=== PATIENT | male | born 1940 | race Caucasian/White ===

== ENCOUNTER → 2016-06-26 | Outpatient (CLI) | payer OTHER | LOC: M ONCR 14:24 | PROVIDERS: ATTEND Radiology Radiation Oncology | DX: C61 Malignant neoplasm of prostate (principal) ==

== ENCOUNTER → 2016-07-09 | Outpatient (CLI) | payer MEDICARE ==
--- NOTE | 2016-07-09 17:05 | REP ---
CT CHEST WITHOUT CONTRAST: REASON: Dyspnea. COMPARISON: None. The lack of intravenous contrast decreases the sensitivity of the exam. There is no mediastinal or hilar adenopathy. There are no pleural or pericardial effusions. The imaged upper abdomen is within normal limits. The imaged osseous structures are within normal limits for the patient's age. Evaluation of the lung linares show bilateral apical pleural parenchymal scarring with pleural blebs and parenchymal bulla seen in conjunction with small cystic air spaces scattered throughout all lung linares and particularly in the lung bases where additional pleural blebs are noted. There is cylindrical bronchiectasis seen in the lung bases. More mild appearing cylindrical bronchiectasis is seen in the mid and upper lung zones. Scattered asymmetric opacities throughout the lung linares with basilar predominance could obscure a significant nodule. IMPRESSION: Marked chronic changes with fibrosis, parenchymal bulla, pleural blebs, and bronchiectasis as described above. There is no revised Fleischner's society criteria on the recommendation for followup of such abnormalities. Followup should be based on clinical assessment and patient history. Signed by Alfonso Tee DO 07/10/2016 10:20 A
== END ==
LOC: M RAD 13:48
PROVIDERS: ATTEND Internal Medicine Pulmonary Disease
DX: R06.00 Dyspnea, unspecified (principal)

== ENCOUNTER → 2016-10-01 | Outpatient (REF) | payer MEDICARE ==
[2016-10-01 12:37] LABS: MEAN CORPUSCULAR HEMOGLOBIN 32.1 pg (27.0-33.0); MEAN CORPUSCULAR HGB CONC 33.8 g/dl (32.0-36.5); MEAN CORPUSCULAR VOLUME 94.9 fl (80.0-96.0); RED CELL DISTRIBUTION WIDTH 13.2 % (11.5-14.5)
[2016-10-01 12:40] LABS: ALBUMIN 3.4 GM/DL (3.2-5.2); BILIRUBIN,TOTAL 0.5 MG/DL (0.2-1.0); CALCIUM LEVEL 8.3 MG/DL (8.8-10.2); CREATININE FOR GFR 1.3 MG/DL (0.70-1.30); GLOMERULAR FILTRATION RATE 56.8 (>42); POTASSIUM SERUM 4.2 MEQ/L (3.5-5.1); TOTAL PROTEIN 6.8 GM/DL (6.4-8.2)
== END ==
LOC: M SFHCPLAZ 08:57
PROVIDERS: ATTEND Internal Medicine
DX: Z85.46 Personal history of malignant neoplasm of prostate (principal); I10 Essential (primary) hypertension; E11.9 Type 2 diabetes mellitus without complications

== ENCOUNTER → 2016-12-05 | Outpatient (REF) | payer MEDICARE | LOC: M LABDRAW1 13:31 | PROVIDERS: ATTEND Radiology Radiation Oncology | DX: C61 Malignant neoplasm of prostate (principal) | CPT/HCPCS: 36415; 84153; 90662; G0008 ==

== ENCOUNTER → 2017-03-14 | Outpatient (REF) | payer MEDICARE ==
[2017-03-14 13:10] LABS: MALB URINE SIEMENS 20.5 MG/L; MAU/CREAT RATIO 16.9 MCG/MG (0.0-30.0)
[2017-03-14 13:24] LABS: ALBUMIN 3.7 GM/DL (3.2-5.2); ALBUMIN/GLOBULIN RATIO 1.12 (1.00-1.93); ALKALINE PHOSPHATASE 103 U/L (45-117); ALT/SGPT 19 U/L (12-78); ANION GAP 6 MEQ/L (8-16); AST/SGOT 20 U/L (7-37); BILIRUBIN,TOTAL 0.6 MG/DL (0.2-1.0); BLOOD UREA NITROGEN 21 MG/DL (7-18); CARBON DIOXIDE LEVEL 31 MEQ/L (21-32); CHLORIDE LEVEL 106 MEQ/L (98-107); CHOLESTEROL LEVEL 141 MG/DL (<200); CREATININE FOR GFR 1.17 MG/DL (0.70-1.30); GLOMERULAR FILTRATION RATE > 60.0 (>42); GLUCOSE, FASTING 121 MG/DL (83-110); HDL CHOLESTEROL 38 MG/DL (>40); LDL CHOLESTEROL 80.4 MG/DL (<100); NON-HDL-C 103 MG/DL; POTASSIUM SERUM 4.7 MEQ/L (3.5-5.1); SODIUM LEVEL 143 MEQ/L (136-145); TRIGLYCERIDES LEVEL 113 MG/DL (<150)
[2017-03-14 13:41] LABS: ESTIMATED AVERAGE GLUCOSE 137 MG/DL (60-110); HEMOGLOBIN A1c 6.4 %
== END ==
LOC: M SFHCPLAZ 09:30
DX: I10 Essential (primary) hypertension (principal); E11.9 Type 2 diabetes mellitus without complications; E78.00 Pure hypercholesterolemia, unspecified
CPT/HCPCS: 83735

== ENCOUNTER → 2017-03-31 | Outpatient (CLI) | payer MEDICARE | LOC: M RAD 07:46 | DX: I71.4 Abdominal aortic aneurysm, without rupture (principal) | CPT/HCPCS: 76775 ==

== ENCOUNTER → 2017-06-25 | Outpatient (CLI) | payer MEDICARE | LOC: M ONCR 13:57 | DX: C61 Malignant neoplasm of prostate (principal) | CPT/HCPCS: G0463 ==

== ENCOUNTER → 2017-09-11 | Outpatient (REF) | payer MEDICARE ==
[2017-09-11 12:26] LABS: ESTIMATED AVERAGE GLUCOSE 146 MG/DL (60-110); HEMOGLOBIN A1c 6.7 %
[2017-09-11 12:31] LABS: ALBUMIN 3.5 GM/DL (3.2-5.2); ALBUMIN/GLOBULIN RATIO 0.97 (1.00-1.93); ALKALINE PHOSPHATASE 103 U/L (45-117); ALT/SGPT 21 U/L (12-78); ANION GAP 6 MEQ/L (8-16); AST/SGOT 20 U/L (7-37); BILIRUBIN,TOTAL 0.4 MG/DL (0.2-1.0); BLOOD UREA NITROGEN 24 MG/DL (7-18); CALCIUM LEVEL 8.7 MG/DL (8.8-10.2); CARBON DIOXIDE LEVEL 30 MEQ/L (21-32); CHLORIDE LEVEL 106 MEQ/L (98-107); CREATININE FOR GFR 1.27 MG/DL (0.70-1.30); GLOMERULAR FILTRATION RATE 58.2 (>42); GLUCOSE, FASTING 120 MG/DL (70-100); HEMATOCRIT 40.6 % (42.0-52.0); HEMOGLOBIN 13.4 g/dl (13.5-17.5); MAGNESIUM LEVEL 1.8 MG/DL (1.8-2.4); MEAN CORPUSCULAR HEMOGLOBIN 30.5 pg (27.0-33.0); MEAN CORPUSCULAR VOLUME 92.5 fl (80.0-96.0); PLATELET COUNT, AUTOMATED 278 10^3/uL (150-450); POTASSIUM SERUM 4.3 MEQ/L (3.5-5.1); RED BLOOD COUNT 4.39 10^6/uL (4.30-6.10); RED CELL DISTRIBUTION WIDTH 13.4 % (11.5-14.5); SODIUM LEVEL 142 MEQ/L (136-145); TOTAL PROTEIN 7.1 GM/DL (6.4-8.2); WHITE BLOOD COUNT 8.3 10^3/uL (4.0-10.0)
== END ==
LOC: M SFHCPLAZ 07:51
DX: R06.09 Other forms of dyspnea (principal); I10 Essential (primary) hypertension; E11.9 Type 2 diabetes mellitus without complications
CPT/HCPCS: 83735

== ENCOUNTER → 2017-12-16 | Outpatient (CLI) | payer MEDICARE ==
[2017-12-16 11:49] LABS: PROSTATIC SPECIFIC AG MONITOR < 0.01 NG/ML (< 4.0)
== END ==
LOC: M LAB 10:54
DX: C61 Malignant neoplasm of prostate (principal)
CPT/HCPCS: 84153

== ENCOUNTER → 2018-04-07 | Outpatient (REF) | payer MEDICARE ==
[2018-04-07 11:08] LABS: HEMATOCRIT 40.9 % (42.0-52.0); HEMOGLOBIN 13.3 g/dl (13.5-17.5); MEAN CORPUSCULAR HEMOGLOBIN 30.8 pg (27.0-33.0); MEAN CORPUSCULAR HGB CONC 32.5 g/dl (32.0-36.5); MEAN CORPUSCULAR VOLUME 94.7 fl (80.0-96.0); PLATELET COUNT, AUTOMATED 206 10^3/uL (150-450); RED BLOOD COUNT 4.32 10^6/uL (4.30-6.10); WHITE BLOOD COUNT 9.4 10^3/uL (4.0-10.0)
[2018-04-07 11:21] LABS: ALBUMIN 3.4 GM/DL (3.2-5.2); BILIRUBIN,TOTAL 1.1 MG/DL (0.2-1.0); CALCIUM LEVEL 8.6 MG/DL (8.8-10.2); CHOLESTEROL RISK RATIO 3.585 (<5); CREATININE FOR GFR 1.25 MG/DL (0.70-1.30); GLOMERULAR FILTRATION RATE 59.2 (>35); MAGNESIUM LEVEL 2.1 MG/DL (1.8-2.4); POTASSIUM SERUM 4.4 MEQ/L (3.5-5.1); TOTAL PROTEIN 6.6 GM/DL (6.4-8.2)
[2018-04-07 11:35] LABS: MALB URINE SIEMENS 31.5 MG/L; MAU/CREAT RATIO 17.3 MCG/MG (0.0-30.0)
[2018-04-07 11:37] LABS: HEMOGLOBIN A1c 6.8 %
== END ==
LOC: M SFHCPLAZ 08:39
PROVIDERS: ATTEND Internal Medicine
DX: Z85.46 Personal history of malignant neoplasm of prostate (principal); I10 Essential (primary) hypertension; E11.9 Type 2 diabetes mellitus without complications; E78.00 Pure hypercholesterolemia, unspecified

== ENCOUNTER → 2018-04-15 | Outpatient (CLI) | payer MEDICARE ==
--- NOTE | 2018-04-15 14:00 | REP ---
CT Head without contrast HISTORY: Visual change COMPARISON: None Areas of decreased attenuation are present in the periventricular white matter. This represents small-vessel ischemic disease. There is no intraparenchymal hemorrhage, acute infarct, mass or midline shift. The ventricular system and cortical sulci are dilated consistent with minimal volume loss. There is no extra cerebral collection. There is no fracture. The visualized sinuses are clear. IMPRESSION: 1. Small vessel ischemic disease. 2. Minimal volume loss. Electronically Signed by Wang Queen MD 04/15/2018 01:51 P
--- NOTE | 2018-04-15 15:59 | REP ---
Bilateral carotid artery duplex ultrasound: Peak flow velocity analysis: RIGHT LEFT ICA Peak flow velocity cm/sec 143 80 150 ICA Diastolic flow velocity cm/sec 835.2 45.0 ICA/CCA Ratio 2.4 1.6 ECA Peak flow velocity cm/sec 215 175 CCA Peak flow velocity cm/sec 59.7 91.1 There is moderately heavy atheromatous plaque in the common carotid arteries, bulbs, internal carotid arteries and external carotid arteries bilaterally. The peak flow velocities in the right and left internal carotid arteries and right and left external carotid arteries are moderately elevated. This is compatible with 50 - 69% stenosis in these vessels. There is antegrade flow in the vertebral arteries bilaterally. Impression: 50 - 69% stenosis in the internal carotid arteries bilaterally and in the external carotid arteries bilaterally. Electronically Signed by Anival Quintana MD 04/15/2018 03:50 P
== END ==
LOC: M RAD 13:20
PROVIDERS: ATTEND Internal Medicine
DX: I65.23 Occlusion and stenosis of bilateral carotid arteries (principal); I73.9 Peripheral vascular disease, unspecified; H53.9 Unspecified visual disturbance; Z86.69 Personal history of other diseases of the nervous system and sense organs
CPT/HCPCS: 70450; 93880; G0463

== ENCOUNTER → 2018-04-15 | Outpatient (CLI) | payer MEDICARE | LOC: M RAD 13:35 | PROVIDERS: ATTEND Nurse Practitioner Adult Health | DX: I65.23 Occlusion and stenosis of bilateral carotid arteries (principal); I73.9 Peripheral vascular disease, unspecified; H53.9 Unspecified visual disturbance ==

== ENCOUNTER → 2018-06-04 | Outpatient (CLI) | payer MEDICARE ==
--- NOTE | 2018-06-04 09:18 | REP ---
Abdominal aortic sonography: History: Abdominal aortic aneurysm without rupture. Comparison study: March 31, 2017. Findings: Today's sonographic evaluation demonstrates that the abdominal aorta measures 2.6 x 2.6 cm in AP by transverse dimension at the diaphragmatic hiatus. At the level of main renal arteries, aortic dimensions are 2.4 x 2.1 cm. There is an infrarenal abdominal aortic aneurysm again seen. This measures 3.7 cm anteroposterior x 4.4 cm in right to left dimension x 6.4 cm in length. This is slightly increased in size. There is some eccentric mural thrombus visible in the aorta as expected. The aorta aneurysm does not extend into the common iliac arteries which measure 1.9 x 1.7 cm in AP by transverse dimension on the right, and 1.6 x 1.5 cm in dimension on the left. The distal aorta measures 2.1 x 3.1 cm below the level of the aneurysm. Impression: 3.7 x 4.4 cm infrarenal abdominal aortic aneurysm, slightly increased in size. Electronically Signed by Miguel Angel Hester MD 06/04/2018 01:02 P
== END ==
LOC: M RAD 07:15
PROVIDERS: ATTEND Internal Medicine
DX: I71.4 Abdominal aortic aneurysm, without rupture (principal); I74.09 Other arterial embolism and thrombosis of abdominal aorta

== ENCOUNTER → 2018-06-09 | Outpatient (REF) | payer MEDICARE | LOC: M LABDRAW1 11:42 | PROVIDERS: ATTEND Radiology Radiation Oncology | DX: C61 Malignant neoplasm of prostate (principal) ==

== ENCOUNTER → 2018-06-17 | Outpatient (CLI) | payer MEDICARE ==
--- NOTE | 2018-06-18 06:54 | RADONC ---
RADIATION ONCOLOGY FOLLOWUP NOTE: DATE: 06/17/2018 CHART NUMBER: [id number] DIAGNOSIS: Prostate cancer. STAGE: Recurrent ECOG PERFORMANCE STATUS: 0 Mr. 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 REVIEW OF SYSTEMS: The patient denies any nausea, vomiting, diarrhea, dysuria, hematuria or blood per rectum. He does have some incontinence and wears a protective garment (Depends) for his incontinence. His energy level is excellent and he is able to maintain most day-to-day activities without any alteration of his lifestyle. He also denies fevers, chills, night sweats, diplopia, headaches, anxiety or depression, anorexia, weight loss, visual disturbances, chest pain. EXAMINATION FINDINGS: He is a well-developed, well-nourished male in no acute distress. HEENT: Normocephalic. EOMI. PERRLA. Fundi benign. LYMPHATICS: No palpable peripheral lymphadenopathy is appreciated. LUNGS: Clear. HEART: Regular without murmurs. ABDOMEN: Without evidence of hepatomegaly, masses, deep abdominal tenderness. EXTREMITIES: Without cyanosis, clubbing or edema. NEUROLOGIC: Examination physiologic and nonfocal. PELVIC: Deferred at the patient's request (his PSA level was less than 0.01). IMPRESSION: Clinically VERNA with a most recent PSA less than 0.01. PLAN: Return to clinic in approximately 6 months and he was instructed to return to his referring physicians as per their instructions and directions. Thank you for allowing us the opportunity of participation in the joint followup care of this gentleman. Most sincerely, cc: MD Godwin Addison MD
== END ==
LOC: M ONCR 14:11
PROVIDERS: ATTEND Radiology Radiation Oncology
DX: Z08 Encounter for follow-up examination after completed treatment for malignant neoplasm (principal); Z85.46 Personal history of malignant neoplasm of prostate; R39.81 Functional urinary incontinence; Z92.3 Personal history of irradiation

== ENCOUNTER → 2018-10-07 | Outpatient (REF) | payer MEDICARE ==
[2018-10-07 10:37] LABS: ALBUMIN 3.6 GM/DL (3.2-5.2); ALT/SGPT 30 U/L (12-78); BILIRUBIN,TOTAL 0.4 MG/DL (0.2-1.0); BLOOD UREA NITROGEN 25 MG/DL (7-18); CARBON DIOXIDE LEVEL 28 MEQ/L (21-32); CHLORIDE LEVEL 109 MEQ/L (98-107); CREATININE FOR GFR 1.13 MG/DL (0.70-1.30); GLOMERULAR FILTRATION RATE > 60.0 (>35); GLUCOSE, FASTING 125 MG/DL (70-100); MAGNESIUM LEVEL 2.1 MG/DL (1.8-2.4); POTASSIUM SERUM 4.4 MEQ/L (3.5-5.1); SODIUM LEVEL 143 MEQ/L (136-145); TOTAL PROTEIN 6.9 GM/DL (6.4-8.2)
[2018-10-07 10:43] LABS: HEMOGLOBIN A1c 6.6 %
== END ==
LOC: M SFHCPLAZ 07:54
PROVIDERS: ATTEND Internal Medicine
DX: I10 Essential (primary) hypertension (principal); E11.9 Type 2 diabetes mellitus without complications

== ENCOUNTER → 2018-12-02 | Outpatient (CLI) | payer MEDICARE | LOC: M LAB 10:59 | PROVIDERS: ATTEND Radiology Radiation Oncology | DX: C61 Malignant neoplasm of prostate (principal) ==

== ENCOUNTER → 2018-12-16 | Outpatient (CLI) | payer MEDICARE ==
--- NOTE | 2018-12-17 15:01 | RADONC ---
RADIATION ONCOLOGY FOLLOWUP NOTE DATE: 12/16/2018 CHART NUMBER: [id number] DIAGNOSIS: Prostate cancer. STAGE: Recurrent. ECOG PERFORMANCE STATUS: 0 FOLLOWUP NOTE: Mr. Monzon is a very pleasant, 78-year-old white male with the diagnosis of recurrent moderately to poorly differentiated [place] score 7 (3-4) adenocarcinoma of prostate, who is presenting to us today for routine followup visit 3 years and 1 month post completion of external beam radiation therapy. REVIEW OF SYSTEMS: The patient presents today reporting that generally he is doing quite well. He does continue to have some incontinence since his surgery. Other than that the patient's review of systems is noncontributory. Denies nausea, vomiting, fevers, chills, night sweats, diplopia, headaches, anxiety or depression, anorexia, weight loss, visual disturbances, chest pain, urinary or bowel difficulties, bone pain, or neurological problems. PHYSICAL EXAMINATION: The patient is a well-developed, well-nourished male in no acute distress. HEENT exam is normocephalic, atraumatic. Extraocular movements are intact. There is no palpable cervical, supraclavicular, infraclavicular, axillary, or inguinal lymphadenopathy present. Lungs are clear to auscultation and percussion. Heart has a regular rate and rhythm. Abdomen is benign with no hepatosplenomegaly, masses, or tenderness. Rectal examination reveals a normal anal sphincter tone. His prostate bed is smooth with no evidence of nodularity. Skeletal examination reveals no tenderness to pressure or percussion of the bony skeleton. Extremities reveal no clubbing, cyanosis, or edema. Neurologic exam is grossly intact, as is the remainder of the physical examination. The patient is clinically VERNA at this time. I have discharged him from my followup at this point. He will continue his close followup with his other physicians in the meantime. Dr. Dennis Bond is following him. I let the patient know that I will be retiring. He does have my cell phone number and work number, and I have let him know to feel free to contact me anytime if I could be of any assistance since I will be here for several months still. cc: MD Godwin Addison MD [facility] HOSPITALHeather
== END ==
LOC: M ONCR 12:53
PROVIDERS: ATTEND Radiology Radiation Oncology
DX: C61 Malignant neoplasm of prostate (principal)

== ENCOUNTER → 2019-04-19 | Outpatient (REF) | payer MEDICARE ==
[2019-04-19 13:11] LABS: HEMATOCRIT 43.5 % (42.0-52.0); HEMOGLOBIN 13.9 g/dl (13.5-17.5); MEAN CORPUSCULAR HEMOGLOBIN 30.7 pg (27.0-33.0); PLATELET COUNT, AUTOMATED 229 10^3/uL (150-450); RED BLOOD COUNT 4.53 10^6/uL (4.30-6.10); WHITE BLOOD COUNT 6.6 10^3/uL (4.0-10.0)
[2019-04-19 13:30] LABS: ALBUMIN 3.7 GM/DL (3.2-5.2); ALT/SGPT 25 U/L (12-78); BILIRUBIN,TOTAL 0.5 MG/DL (0.2-1.0); BLOOD UREA NITROGEN 26 MG/DL (7-18); CALCIUM LEVEL 8.6 MG/DL (8.8-10.2); CARBON DIOXIDE LEVEL 30 MEQ/L (21-32); CHLORIDE LEVEL 107 MEQ/L (98-107); CHOLESTEROL LEVEL 172 MG/DL (<200); CHOLESTEROL RISK RATIO 5.058 (<5); CREATININE FOR GFR 1.23 MG/DL (0.70-1.30); GLOMERULAR FILTRATION RATE > 60.0 (>35); GLUCOSE, FASTING 127 MG/DL (70-100); HDL CHOLESTEROL 34 MG/DL (>40); LDL CHOLESTEROL 112 MG/DL (<100); MAGNESIUM LEVEL 1.9 MG/DL (1.8-2.4); NON-HDL-C 138 MG/DL; POTASSIUM SERUM 4.1 MEQ/L (3.5-5.1); SODIUM LEVEL 141 MEQ/L (136-145); TRIGLYCERIDES LEVEL 131 MG/DL (<150)
[2019-04-19 13:31] LABS: HEMOGLOBIN A1c 6.1 %
[2019-04-19 13:35] LABS: MALB URINE SIEMENS 59.4 MG/L; MAU/CREAT RATIO 40.9 MCG/MG (0.0-30.0)
== END ==
LOC: M PLALAB 09:32 → M SFHCPLAZ 09:32
PROVIDERS: ATTEND Internal Medicine
DX: I10 Essential (primary) hypertension (principal); Z85.46 Personal history of malignant neoplasm of prostate; E11.9 Type 2 diabetes mellitus without complications; E78.00 Pure hypercholesterolemia, unspecified

== ENCOUNTER → 2019-08-26 | Outpatient (CLI) | payer MEDICARE ==
--- NOTE | 2019-08-26 10:09 | REP ---
ABDOMINAL AORTIC SONOGRAPHY: HISTORY: Abdominal aortic aneurysm without rupture. Comparison aortic sonography June 04, 2018. FINDINGS: The abdominal aorta measures 2.1 x 1.9 cm in AP x transverse dimension respectively at the proximal diaphragmatic hiatus. At the main renal artery origin level, the aortic dimensions are 2.4 x 2.3 cm. The mid aorta measures 2.3 x 2.3 cm in transverse x AP dimension. There is an infrarenal a aortic aneurysm measuring 3.6 x 3.5 cm in AP x transverse dimension respectively, 6.9 cm in length. The iliac arteries are not involved. The right and left iliac artery measure 1.5 and 1.1 cm in AP dimension respectively. IMPRESSION: Infrarenal abdominal aortic aneurysm. There is no evidence of progression since the prior study.
== END ==
LOC: M WHC 08:48
PROVIDERS: ATTEND Internal Medicine
DX: I71.4 Abdominal aortic aneurysm, without rupture (principal)

== ENCOUNTER → 2019-10-14 | Outpatient (REF) | payer MEDICARE ==
[2019-12-01 06:40] LABS: ALBUMIN 3.6 GM/DL (3.2-5.2); ALT/SGPT 26 U/L (12-78); BILIRUBIN,TOTAL 1.1 MG/DL (0.2-1.0); BLOOD UREA NITROGEN 22 MG/DL (7-18); CALCIUM LEVEL 9.1 MG/DL (8.8-10.2); CARBON DIOXIDE LEVEL 31 MEQ/L (21-32); CHLORIDE LEVEL 105 MEQ/L (98-107); CHOLESTEROL LEVEL 158 MG/DL (<200); CHOLESTEROL RISK RATIO 4.647 (<5); CREATININE FOR GFR 1.17 MG/DL (0.70-1.30); GLOMERULAR FILTRATION RATE > 60.0 (>35); GLUCOSE, FASTING 120 MG/DL (70-100); HDL CHOLESTEROL 34 MG/DL (>40); HEMOGLOBIN A1c 6.1 %; LDL CHOLESTEROL 94 MG/DL (<100); MAGNESIUM LEVEL 1.8 MG/DL (1.8-2.4); MALB URINE SIEMENS 52.5 MG/L; NON-HDL-C 124 MG/DL; POTASSIUM SERUM 4.1 MEQ/L (3.5-5.1); SODIUM LEVEL 139 MEQ/L (136-145); TOTAL PROTEIN 7.2 GM/DL (6.4-8.2); TRIGLYCERIDES LEVEL 149 MG/DL (<150)
== END ==
LOC: M SFHCPLAZ 08:58
PROVIDERS: ATTEND Internal Medicine
DX: E11.9 Type 2 diabetes mellitus without complications (principal); I10 Essential (primary) hypertension; E78.00 Pure hypercholesterolemia, unspecified

== ENCOUNTER → 2020-04-24 | Outpatient (REF) | payer MEDICARE ==
[2020-04-24 14:10] LABS: BASO # 0.1 10^3/uL (0.0-0.2); BASO % 0.8 % (0.0-1.0); EOS # 0.4 10^3/uL (0.0-0.5); EOS % 5.1 % (0.0-3.0); LYMPH # 1.4 10^3/uL (1.5-5.0); LYMPH % 17.9 % (24.0-44.0); MEAN CORPUSCULAR HEMOGLOBIN 30.3 pg (27.0-33.0); MEAN CORPUSCULAR HGB CONC 31.8 g/dl (32.0-36.5); MEAN CORPUSCULAR VOLUME 95.2 fl (80.0-96.0); MONO # 0.8 10^3/uL (0.0-0.8); MONO % 10.4 % (2.0-8.0); NEUTROPHILS # 5.2 10^3/uL (1.5-8.5); NEUTROPHILS % 65.4 % (36.0-66.0); PLATELET COUNT, AUTOMATED 299 10^3/uL (150-450); RED BLOOD COUNT 4.62 10^6/uL (4.30-6.10); WHITE BLOOD COUNT 7.9 10^3/uL (4.0-10.0)
[2020-04-24 14:29] LABS: HEMOGLOBIN A1c 6.1 %
[2020-04-24 14:53] LABS: MALB URINE SIEMENS 76.5 MG/L; MAU/CREAT RATIO 36.4 MCG/MG (0.0-30.0)
[2020-04-24 15:29] LABS: BLOOD UREA NITROGEN 21 MG/DL (7-18); CARBON DIOXIDE LEVEL 26 MEQ/L (21-32); CHLORIDE LEVEL 107 MEQ/L (98-107); CREATININE FOR GFR 1.16 MG/DL (0.70-1.30); GLOMERULAR FILTRATION RATE > 60.0 (>35); GLUCOSE, FASTING 127 MG/DL (70-100); POTASSIUM SERUM 4.4 MEQ/L (3.5-5.1); SODIUM LEVEL 141 MEQ/L (136-145)
[2020-04-24 15:30] LABS: ALBUMIN 3.4 GM/DL (3.2-5.2); ALT/SGPT 21 U/L (12-78); BILIRUBIN,TOTAL 0.6 MG/DL (0.2-1.0); CALCIUM LEVEL 8.8 MG/DL (8.8-10.2); CHOLESTEROL LEVEL 144 MG/DL (<200); CHOLESTEROL RISK RATIO 4.114 (<5); HDL CHOLESTEROL 35 MG/DL (>40); LDL CHOLESTEROL 83 MG/DL (<100); NON-HDL-C 109 MG/DL; PROSTATIC SPECIFIC AG MONITOR < 0.01 NG/ML (< 4.00); TOTAL PROTEIN 6.9 GM/DL (6.4-8.2); TRIGLYCERIDES LEVEL 128 MG/DL (<150)
== END ==
LOC: M PLALAB 09:34
PROVIDERS: ATTEND Internal Medicine
DX: E78.00 Pure hypercholesterolemia, unspecified (principal); I10 Essential (primary) hypertension; E11.9 Type 2 diabetes mellitus without complications; Z11.59 Encounter for screening for other viral diseases; Z85.46 Personal history of malignant neoplasm of prostate
CPT/HCPCS: 36415; 80053; 80061; 82043; 83036; 83735; 84153; 85025; G0472

== ENCOUNTER → 2020-10-20 | Outpatient (CLI) | payer MEDICARE ==
[2020-10-20 14:12] LABS: HEMOGLOBIN A1c 6.1 %
[2020-10-20 14:29] LABS: ALBUMIN 3.6 GM/DL (3.2-5.2); BILIRUBIN,TOTAL 0.8 MG/DL (0.2-1.0); CALCIUM LEVEL 8.8 MG/DL (8.8-10.2); CREATININE FOR GFR 1.29 MG/DL (0.70-1.30); GLOMERULAR FILTRATION RATE 56.8 (>35); MAGNESIUM LEVEL 2.2 MG/DL (1.8-2.4); POTASSIUM SERUM 4.4 MEQ/L (3.5-5.1); TOTAL PROTEIN 7.4 GM/DL (6.4-8.2)
== END ==
LOC: M PLALAB 09:58
PROVIDERS: ATTEND Internal Medicine
DX: I10 Essential (primary) hypertension (principal)

== ENCOUNTER → 2020-11-13 | Outpatient (CLI) | payer MEDICARE ==
--- NOTE | 2020-11-13 09:04 | REP ---
INDICATION: AAA. COMPARISON: 08/26/2019. TECHNIQUE: Real-time sonographic evaluation of the abdominal aorta performed. FINDINGS: The previously noted infrarenal abdominal aortic aneurysm which measures 3.6 x 3.5 cm appears to have increased in size. Maximum AP diameter of abdominal aorta: Proximal (at diaphragm):2.6 cm. At renal artery level: Abdominal aorta not visualized. Mid abdominal aorta:2.4 cm. Distal abdominal aorta (prebifurcation): 4.3 cm. Maximum AP diameter common iliac arteries: Right: 13 mm. Left: 13mm. IMPRESSION: Mild increase in size of infrarenal abdominal aortic aneurysm which measures 4.3 x 4.0 cm, extending for a length of approximately 5.8 cm. <Electronically signed by Anival Mcghee > 11/13/20 0900
== END ==
LOC: M RAD 08:13
PROVIDERS: ATTEND Internal Medicine
DX: I71.4 Abdominal aortic aneurysm, without rupture (principal)

== ENCOUNTER 2020-11-30 02:18 | Emergency (ER) | payer MEDICARE ==
[2020-11-30] MEDS ORDERED: ETOMIDATE INJ 20MG/10ML VIAL ONE (02:19)
[2020-11-30] MEDS ORDERED: SUCCINYLCHOLINE 100 MG/5 ML SYRINGE (J0330) ONE (02:19)
[2020-11-30] MEDS ORDERED: MIDAZOLAM INJ 2MG/2ML VIAL (J2250 PER 1MG) IV STA (02:37)
[2020-11-30] MEDS ORDERED: ASPIRIN 300 MG SUPP PR ONE (02:55)
[2020-11-30 02:57] LABS: VENOUS BASE EXCESS -7.8 (-2.0-2.0); VENOUS HCO3 20.1 MEQ/L (23.0-27.0); VENOUS O2 SATURATION 88.3 % (60.0-80.0); VENOUS PARTIAL PRESSURE O2 65.3 mmHg (30.0-50.0); VENOUS PH 7.223 UNITS (7.330-7.430); VENOUS STANDARD HCO3 18.1 MEQ/L; VENOUS TOTAL CO2 21.7 MEQ/L (24.0-28.0)
[2020-11-30 02:58] LABS: BASO # 0.1 10^3/uL (0.0-0.2); BASO % 0.4 % (0.0-1.0); EOS # 0.3 10^3/uL (0.0-0.5); EOS % 2.2 % (0.0-3.0); HEMATOCRIT 44.9 % (42.0-52.0); HEMOGLOBIN 14.8 g/dl (13.5-17.5); LYMPH # 2.5 10^3/uL (1.5-5.0); LYMPH % 17.2 % (24.0-44.0); MEAN CORPUSCULAR HEMOGLOBIN 30.5 pg (27.0-33.0); MEAN CORPUSCULAR VOLUME 92.6 fl (80.0-96.0); MONO # 1.4 10^3/uL (0.0-0.8); NEUTROPHILS # 9.8 10^3/uL (1.5-8.5); NEUTROPHILS % 68.7 % (36.0-66.0); PLATELET COUNT, AUTOMATED 238 10^3/uL (150-450); RED BLOOD COUNT 4.85 10^6/uL (4.30-6.10); WHITE BLOOD COUNT 14.3 10^3/uL (4.0-10.0)
[2020-11-30 03:09] LABS: INR 1.14; PARTIAL THROMBOPLASTIN TIME 30.3 SECONDS (25.9-37.0)
[2020-11-30] MEDS ORDERED: LOSA50TA88 PO (03:10)
[2020-11-30] MEDS ORDERED: ATEN50TA2 PO (03:10)
[2020-11-30] MEDS ORDERED: OMEP-218 PO (03:10)
[2020-11-30] MEDS ORDERED: ATOR1TAB21 PO (03:10)
[2020-11-30] MEDS ORDERED: MIDAZOLAM INJ 2MG/2ML VIAL (J2250 PER 1MG) IV ONE ×2 (03:20→06:00)
[2020-11-30] MEDS ORDERED: ISOVUE-370 76% 100ML VIAL As Ordered ONE (03:21)
[2020-11-30 03:37] LABS: RSV AMPLIFICATION NEGATIVE (NEGATIVE)
[2020-11-30] MEDS ORDERED: HEPARIN SOD (PORCINE) 5000UNITS/ML 1ML VIAL/SYRINGE IV ONE (04:15)
[2020-11-30] MEDS ORDERED: HEPARIN DRIP 25,000 UNITS in IV 1 EA IV SCH (04:15)
[2020-11-30] MEDS ORDERED: TENECTEPLASE 50 MG KIT (TNKase) (J3101 PER 1MG) IV ONE (04:15)
[2020-11-30 04:18] LABS: BILIRUBIN,DIRECT 0.2 MG/DL (0.0-0.2); BILIRUBIN,TOTAL 0.7 MG/DL (0.2-1.0); CALCIUM LEVEL 8.5 MG/DL (8.8-10.2); CREATININE FOR GFR 1.54 MG/DL (0.70-1.30); GLOMERULAR FILTRATION RATE 46.3 (>35); MB/CK RELATIVE INDEX 10.44 (< OR =4); POTASSIUM SERUM 3.8 MEQ/L (3.5-5.1); THYROID STIMULATING HORMONE 13.2 uIU/ML (0.358-3.740); TOTAL PROTEIN 6.7 GM/DL (6.4-8.2)
[2020-11-30 04:33] LABS: TROPONIN I 87.9 NG/ML (< 0.10)
--- NOTE | 2020-11-30 04:37 | REPVR ---
PROCEDURE INFORMATION: Exam: XR Chest Exam date and time: 11/30/20 (2:38am) Age: 80 years old Clinical indication: Placement and re-postioning of E-T tube TECHNIQUE: Imaging protocol: Portable CXR Views: 1 view COMPARISON: CT CHEST of 07/09/16 FINDINGS: The heart may be top normal in size. Diffusely prominent interstitial markings. No consolidation. No significant pleural effusions. No pneumothorax. E-T tube in place, terminating 2.6 cm above the debbi (on the 2nd film obtained). An enteric tube passes into the stomach (its distal portion not included on the film). IMPRESSION: Bilateral interstitial disease -- perhaps chronic disease. Cannot exclude acute pneumonitis. No consolidation. No significant pleural effusions. E-T tube in place, terminating 2.6 cm above the debbi (on the 2nd film obtained). Electronically signed by: Nikole Chen On 11/30/2020 04:37:17 AM
[2020-11-30] MEDS ORDERED: fentaNYL 100 MCG/2 ML INJECTION (J3010) IV ONE (04:40)
[2020-11-30] MEDS: MIDAZOLAM INJ 2MG/2ML VIAL (J2250 PER 1MG) IV PRN ×3 (04:41→06:21)
--- NOTE | 2020-11-30 05:00 | REPVR ---
PROCEDURE INFORMATION: Exam: CT Abdomen and Pelvis with Contrast Exam date and time: 11/30/20 (3:39am) Age: 80 years old Clinical indication: Cardiac arrest TECHNIQUE: Imaging protocol: Computed tomography of the abdomen and pelvis with contrast Radiation optimization: All CT scans at this facility use at least one of these dose optimization techniques: automated exposure control; mA and/or kV adjustment per patient size (includes targeted exams where dose is matched to clinical indication); or iterative reconstruction. Contrast material: Iso Contrast volume: 75 ml Contrast route: IV COMPARISON: CT ABDOMEN PELVIS OF 02/01/14 FINDINGS: Lower lung linares: Cardiomegaly. Streaky and patchy parenchymal changes at the lung bases. Consolidation and/or atelectasis posteriorly at the right lung base. Minimal pleural effusions. Liver: Normal. No solid mass. Gallbladder and bile ducts: Mildly distended gallbladder. No calcified stones. No ductal dilatation. Pancreas: Normal. No ductal dilatation. Spleen: Normal. No splenomegaly. Adrenal glands: Normal. No mass. Kidneys and ureters: No hydronephrosis. Poorly defined hypodense area (perhaps an irregular solid mass (2.5 cm size) (CT density = 53 HU)), posterolaterally at the midpole of the left kidney (axial images #48 - #53). Stomach and bowel: Enteric tube in place, with its tip in the proximal half of the stomach. No bowel obstruction. No mucosal thickening. Appendix: No evidence of appendicitis. Intraperitoneal space: Unremarkable. No free air. No significant fluid collection. Vasculature: Infrarenal abdominal aortic aneurysm (AAA) again seen, extending over an approximate 7 cm cephalo-caudal length. Aneurysm extends to the distal aortic bifurcation. Maximal axial aortic diameter = 3.1 x 3.6 cm (enlarged since 2013). More intraluminal clot now present in the aneurysmal segment. Atherosclerotic calcifications of the abdominal aorta and iliac arteries again seen. Lymph nodes: Unremarkable. No enlarged lymph nodes. Urinary bladder: Unremarkable as visualized. Reproductive: Most likely S/P prostatectomy. Surgical clips again seen in the pelvis, bilaterally. Bones/joints: Unremarkable. No acute fracture. Multilevel degenerative thoracolumbar spine changes. Soft tissues: Unremarkable. IMPRESSION: Bibasilar lung disease. Minimal pleural effusions. See separate CT-CHEST report. Possible irregular solid left renal mass (2.5 cm size) (vs. possible renal infarction; possible renal infection). This finding was not present in 2013. Renal ultrasound can be obtained for further evaluation. Urinalysis also suggested. Infrarenal abdominal aortic aneurysm (AAA), which has enlarged since 2013. In 2013, maximal axial aortic aneurysm diameter = 2.4 x 2.9 cm. More intraluminal clot now present, also. S/P prostatectomy. Electronically signed by: Nikole Chen On 11/30/2020 05:00:31 AM
--- NOTE | 2020-11-30 05:05 | REPVR ---
PROCEDURE INFORMATION: Exam: CT Head Without Contrast Exam date and time: 11/30/2020 3:14 AM Age: 80 years old Clinical indication: Coma or unconsciousness; Additional info: Fall TECHNIQUE: Imaging protocol: Computed tomography of the head without contrast. Radiation optimization: All CT scans at this facility use at least one of these dose optimization techniques: automated exposure control; mA and/or kV adjustment per patient size (includes targeted exams where dose is matched to clinical indication); or iterative reconstruction. COMPARISON: CT Head without contrast 04/15/2018 1:45 PM FINDINGS: Tubes, catheters and devices: OG tube in position. Brain: Normal. No hemorrhage. Unremarkable white matter. No mass effect. Cerebral ventricles: No ventriculomegaly. Paranasal sinuses: Visualized sinuses are unremarkable. No fluid levels. Mastoid air cells: Visualized mastoid air cells are well aerated. Bones/joints: Unremarkable. No acute fracture. Soft tissues: Unremarkable. IMPRESSION: 1. OG tube in position. 2. Negative noncontrast head CT with no change intracranially since 04/15/2018. Electronically signed by: Rashaad Hernandez On 11/30/2020 05:05:18 AM
--- NOTE | 2020-11-30 05:10 | REPVR ---
PROCEDURE INFORMATION: Exam: CT Cervical Spine Without Contrast Exam date and time: 11/30/2020 3:14 AM Age: 80 years old Clinical indication: Injury or trauma; Fall; Concussion/head injury TECHNIQUE: Imaging protocol: Computed tomography images of the cervical spine without contrast. Radiation optimization: All CT scans at this facility use at least one of these dose optimization techniques: automated exposure control; mA and/or kV adjustment per patient size (includes targeted exams where dose is matched to clinical indication); or iterative reconstruction. COMPARISON: US Duplex,carotid (complete) 04/15/2018 1:48 PM FINDINGS: Tubes, catheters and devices: The ET tube and OG tube in position. Vertebrae: No acute fracture. Normal alignment. C2-C3: Early degenerative changes of apophyseal joints, left greater than right with no significant spinal or foraminal stenosis. C3-C4: Mild retrolisthesis and degenerative changes of uncovertebral and apophyseal joints. Borderline spinal stenosis with mild bilateral neural foraminal stenosis. C4-C5: Degenerative/arthritic change of the right apophyseal joint with borderline right neural foraminal stenosis. C5-C6: No significant disc protrusion. No severe spinal canal stenosis. No significant neural foraminal narrowing. C6-C7: No significant disc protrusion. No severe spinal canal stenosis. No significant neural foraminal narrowing. C7-T1: No significant disc protrusion. No severe spinal canal stenosis. No significant neural foraminal narrowing. Soft tissues: Unremarkable. Lungs: Biapical interstitial coarsening with subpleural bullous change. IMPRESSION: 1. Multilevel degenerative changes with borderline spinal stenosis at L3-L4 with mild bilateral neural foraminal stenosis. Otherwise, no significant spinal or foraminal stenosis. 2. ET tube and OG tube in position. 3. Otherwise negative CT cervical spine. No acute fracture or subluxation. Electronically signed by: Rashaad Hernandez On 11/30/2020 05:10:20 AM
--- NOTE | 2020-11-30 05:31 | REPVR ---
PROCEDURE INFORMATION: Exam: CTA Chest With Contrast Exam date and time: 11/30/2020 3:14 AM Age: 80 years old Clinical indication: Other: Cardiac arrest TECHNIQUE: Imaging protocol: Computed tomographic angiography of the chest with contrast. 3D rendering (Not supervised by radiologist): MIP and/or 3D reconstructed images were created by the technologist. Radiation optimization: All CT scans at this facility use at least one of these dose optimization techniques: automated exposure control; mA and/or kV adjustment per patient size (includes targeted exams where dose is matched to clinical indication); or iterative reconstruction. Contrast material: ISO; Contrast volume: 75 ml; Contrast route: INTRAVENOUS (IV); COMPARISON: CT Chest without contrast 07/09/2016 2:00 PM FINDINGS: Tubes, catheters and devices: Endotracheal tube terminates above the debbi. Feeding tube extends into the stomach tip is excluded. Pulmonary arteries: Normal. No pulmonary emboli. Aorta: Atherosclerotic disease of the thoracic aorta. Lungs: Centrilobular and paraseptal emphysema. Extensive dependent bilateral airspace consolidations and ground-glass opacities more pronounced on the right. Pleural spaces: Unremarkable. No pneumothorax. No pleural effusion. Heart: Atherosclerotic of the coronary arteries. Mild cardiomegaly. Lymph nodes: Unremarkable. No enlarged lymph nodes. Bones/joints: Multilevel degenerative disease of the thoracic spine. Soft tissues: Unremarkable. IMPRESSION: No acute pulmonary embolic disease. Centrilobular and paraseptal emphysema. Extensive dependent bilateral airspace consolidations and ground-glass opacities more pronounced on the right. Electronically signed by: Jose Elias Diaz On 11/30/2020 05:30:56 AM
[2020-11-30 05:43] VITALS: BP 198/120
--- NOTE | 2020-11-30 07:59 | ECGEPIP ---
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
--- NOTE | 2020-11-30 08:00 | ECGEPIP ---
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
== END 2020-11-30 06:39 | disposition short-term general hospital (02) ==
LOC: M ED 02:18
DX: I46.9 Cardiac arrest, cause unspecified (principal); I21.3 ST elevation (STEMI) myocardial infarction of unspecified site; I44.0 Atrioventricular block, first degree; R06.02 Shortness of breath; E11.9 Type 2 diabetes mellitus without complications; I10 Essential (primary) hypertension; E78.5 Hyperlipidemia, unspecified; K21.9 Gastro-esophageal reflux disease without esophagitis; M48.061 Spinal stenosis, lumbar region without neurogenic claudication; R91.8 Other nonspecific abnormal finding of lung field; I71.4 Abdominal aortic aneurysm, without rupture; I74.09 Other arterial embolism and thrombosis of abdominal aorta; I51.7 Cardiomegaly; Z88.1 Allergy status to other antibiotic agents
CPT/HCPCS: 31500; 36415; 36600; 70450; 71045; 71275; 72125; 74177; 80047; 80048; 80076; 82550; 82553; 82803; 83690; 83735; 83880; 84443; 84484; 85025; 85610; 85730; 87040; 87505; 87631; 93005; 96365; 96366; 96375; 96376; 99291; 99292; J0330; J1644; J2250; J3101; Q9967